=== PATIENT | male | born 1985 | race Caucasian/White ===

== ENCOUNTER 2018-05-01 13:13 | Outpatient (CLI) | payer OTHER ==
--- NOTE | 2018-05-01 15:21 | MRI ---
MRI THORACIC SPINE WITHOUT COTNRAST: INDICATION: Rib pain and back pain without history of injury. TECHNIQUE: Multiplanar, multisequence MR images were obtained of the thoracic spine without contrast. No radiop aque or MR comparisons are available. FINDINGS: There is diffuse intermediate signal intensity involving the bone marrow of the thoracic spine. Ther e is a 9 mm slightly T1 hyperintense and T2 hyperintense lesion within the left lateral aspect of T12 likely reflecting a bony hemangioma. The remaining visualized paravertebral soft tissues appear wit hin normal limits. At C7-T1 junction, there is no appreciable central canal or neural foraminal narrowing. At T1-T2, there is no appreciable central canal or neural foraminal narrowing. At T2-T3, there is no appreciable central canal or neural foraminal narrowing. At T3-T4, there is no appreciable central canal or neural foraminal narrowing. At T4-5, there is a small central protrusion causing mild effacement of the ventral spinal cord witho ut cord signal abnormality. At T5-6, there is a left paracentral disk protrusion without cord contact. At T6-7, there is a right paracentral protrusion causing mild ventral effacement of the spinal cord w ithout cord signal abnormality. At T7-T8, there is a left paracentral protrusion causing mild effacement of the ventral spinal cord w ithout cord signal abnormality. At T8-T9, there is a left paracentral protrusion without appreciable central canal or neural foramina l narrowing. At T9-T10, there is a left paracentral protrusion causing mild ventral contact of the left aspect of the spinal cord. At T10-T11, there is no appreciable central canal or neural foraminal narrowing. At T11-T12, there is no appreciable central canal or neural foraminal narrowing. T12-L1: there is no appreciable central canal or neural foraminal narrowing. No acute fracture is evident. IMPRESSION: Multilevel spondylosis of the thoracic spine with multilevel disk protrusions causing some ventral co ntact of the spinal cord without definite cord signal abnormality. POS: [facility]
== END 2018-05-01 13:14 | disposition home or self-care (01) ==
LOC: TBSIIMAG 13:13
PROVIDERS: ATTEND Neurological Surgery
DX: M54.6 Pain in thoracic spine (principal); M51.24 Other intervertebral disc displacement, thoracic region; M47.894 Other spondylosis, thoracic region
CPT/HCPCS: 72146